=== PATIENT | female | born 1990 ===

== ENCOUNTER 2025-05-25 09:33 | Emergency (ER) | payer MEDICAID ==
[~2025-05-25] VITALS: Ht 157.5 cm; Wt 71.5 kg
--- NOTE | 2025-05-25 10:07 | RADIOLOGY REPORT ---
DI CHEST,TWO VIEWS, HISTORY: SOB COMPARISON: None None TECHNICAL DATA: 2 view of the chest was obtained. FINDINGS: Lines and tubes: None Cardiomediastinal silhouette: normal Pulmonary vasculature: normal Lung expansion: normal Lung airspace: normal Lung interstitium: normal Pleura: normal Pneumothorax: no Bones: Unremarkable Other: no IMPRESSION: No acute intrathoracic abnormality.
--- NOTE | 2025-05-25 10:09 | ELECTROCARDIOGRAPH REPORT ---
[facility] Test Date: 2025-05-25 Test Time: 10:07:30 Pat Name: SILVIO GUTIERREZ Department: EMERGENCY ROOM Patient ID: [id number] Room: Gender: F Relay Associate: CLAUDIA : 1990 Requested By: RUBÉN SHAFER Order Number: [id number] Reading MD: Dr. Rubén Shafer Measurements Intervals [place] Rate: 90 P: 56 AK: 145 QRS: 37 QRSD: 92 T: 7 QT: 349 QTc: 427 Interpretive Statements Sinus rhythm Borderline T abnormalities, anterior leads Electronically Signed On 05-25-2025 12:04:[address] Rubén Shafer Please click the below link to view image of tracing.
[2025-05-25 10:38] LABS: LEUKOCYTE ESTERASE ,URINE NEGATIVE (Neg); NITRITES, URINE NEGATIVE (Neg); OCCULT BLOOD,URINE TRACE-INTACT (Neg)
[2025-05-25 10:38] LABS: MEAN PLATELET VOLUME 7.4 FL (7.4-10.4); RED CELL DISTRIBUTION WIDTH 14.9 % (11.5-14.5)
[2025-05-25 10:40] LABS: URINE HCG NEGATIVE (NEG)
[2025-05-25 10:41] LABS: UA COLLECTION TYPE CLN CATCH MIDSTREAM
[2025-05-25 10:44] LABS: SQUAMOUS EPITHELIAL CELL,UR FEW /LPF (FEW)
[2025-05-25 10:56] LABS: CREATININE 0.78 MG/DL (0.40-0.90); PRO BRAIN NATRIURETIC PEPTIDE 554 PG/ML (0-125); TOTAL CARBON DIOXIDE 24.9 MMOL/L (24-32); eCRCL 79 ML/MIN; eGFR 84 ML/MIN
--- NOTE | 2025-05-25 14:57 | Physician Documentation ---
History of Present Illness ~ Chief Complaint: Shortness of Breath Stated Complaint: PNEUMONIA Time Seen by MD: 14:09 OK to notify your PCP?: Yes Source: patient Mode of Arrival: POV, Ambulatory Exam Limitations: no limitations HPI 34-year-old female presents for cough, runny nose, shortness of breath, fevers, sore throat since last night. She has a history of pneumonia 2 months ago and states that her symptoms feel similar to that time. She has been around a baby whose was sick with a viral illness. She states that she has also been having a headache. Denies any chest pain, cardiac history. Medication Reconciliation Allergies: Coded Allergies: No Known Allergies (Unverified , 05/25/25) Review of Systems All Other Systems at this time: Reviewed and Negative Physical Exam Vital Signs: RN Vital Signs have been reviewed: Yes, Temperature: 99.4, Source: Temporal, Heart Rate: 78, Respiratory Rate: 16, BP: 115/79, Pulse Oximetry: 97, Weight: 71.550 Oxygen Flow Rate: 0 Pulse Oximetry Reflects: adequate oxygenation Physical Exam General: Alert, no apparent distress. HEENT: PERRL, EOMI, no injection, moist mucous membranes. Bilateral TM clear. Erythema to posterior pharynx. Uvula midline. Neck: Full range of motion. Bilateral anterior cervical lymphadenopathy. Respiratory: Lungs clear, no respiratory distress. Chest: No accessory muscle use. Cardiovascular: Regular rate and rhythm, no murmurs. Gastrointestinal: Soft, nontender, nondistended. Bowels sounds present. Extremities: Normal range of motion, no deformity. Neurologic: Oriented x4. Psychiatric: Normal mood and affect. Skin: Normal color, warm and dry. No edema, no ecchymosis. Progress Results/Orders Results/Orders Completed Orders - [facility] Potassium Cl Sr Tablet (K-Dur Tablet) (05/25/25 15:02) Vital Signs 05/25/25 05/25/25 05/25/25 09:40 10:09 13:44 Temp 99.4 Pulse 104 78 Resp 20 16 B/P (MAP) 147/79 115/79 (91) Pulse Ox 96 97 O2 Flow Rate 0 0 Laboratory Tests Test 05/25/25 09:50 05/25/25 10:18 Urine Specimen Description Cln catch midstream Urine Color Straw Urine Clarity Clear Urine pH 7.0 Urine Specific [place] <=1.005 Urine Protein Negative Urine Glucose (UA) Negative Urine Ketones Negative Urine Occult Blood Trace-intact Urine Nitrite Negative Urine Bilirubin Negative Urine Urobilinogen 0.2 Urine Leukocyte Esterase Negative Urine RBC 3-10 Urine WBC None seen Urine Squamous Epithelial Cells Few Urine Transitional Epithelial Cells Few Urine Bacteria None seen Urine Culture Indicated Not ind Volume Urine Centrifuged 10 ml Urine HCG, Qualitative Negative Urine Comment White Blood Count 6.4 Red Blood Count 4.12 L Hemoglobin 12.1 Hematocrit 34.6 L Mean Corpuscular Volume 84.1 Mean Corpuscular Hemoglobin 29.3 Mean Corpuscular Hemoglobin Concent 34.8 Red Cell Distribution Width 14.9 H Platelet Count 207 Mean Platelet Volume 7.4 Neutrophils (%) (Auto) 82.1 H Lymphocytes (%) (Auto) 7.8 L Monocytes (%) (Auto) 9.1 Eosinophils (%) (Auto) 0.8 Basophils (%) (Auto) 0.2 Neutrophils # (Auto) 5.2 Lymphocytes # (Auto) 0.5 L Monocytes # (Auto) 0.6 Eosinophils # (Auto) 0.1 Basophils # (Auto) 0.0 CBC Comment Sodium Level 137 Potassium Level 3.3 L Chloride Level 103 Carbon Dioxide Level 24.9 Anion Gap 9 Blood Urea Nitrogen 5 L Creatinine 0.78 Estimated GFR/1.73 m2 84 BUN/Creatinine Ratio 6.4 L Glucose Level 98 Calcium Level 8.7 Pro-B-Type Natriuretic Peptide 554 H Albumin 3.8 Chemistry Comments EKG/XRAY/CT/US/VASC/MRI EKG : Additional Comment Electrocardiogram: as interpreted by me; normal sinus rhythm, no axis deviation, no acute ischemia, normal intervals, no pre-excitation pattern. Chest X-Ray : Additional Comments Chest x-ray: as interpreted by me; no large effusion, no large infiltrate, normal mediastinum. Heart Score: Heart Score Response (Comments) Value History N/A 0 EKG Normal 0 Age <45 0 Risk Factors No known risk factors 0 Troponin N/A 0 Total 0 Medical Decision Making Additional info obtained from: family Findings She is presenting with cold cough and congestion symptoms. She was experiencing some shortness of breath and she has a history of pneumonia couple of months ago and states it feels the same. Her physical exam is unremarkable. We did a chest x-ray which is clear, no pneumonia. She had labs ordered while in triage due to her complaint of shortness of breath. The lab work was not indicated although it did show a low potassium of 3.3 as well as an elevated proBNP of 554. Her urinalysis was unremarkable She has no cardiac history or history of blood high blood pressure or high cholesterol. Using shared decision-making we discussed that this is likely a viral illness but that she does not have pneumonia. I gave potassium 20 mEq for the low potassium level and for the proBNP I believe this is likely related to her illness and respiratory symptoms and not due to acute heart failure. Using shared decision-making with the patient, she agrees that she does not believe she has any heart failure and that this is likely a cardiac I offered to do a troponin level for this patient although it is not indicated but due to her elevated proBNP but she would rather be discharged home at this time. Her EKG was normal. We discussed that she should follow up with her primary care provider for repeat PROBNP draw when she is feeling better and return back here for any new or worsening symptoms. She agrees to this plan of care. Differential Dx:Considerations: Include: bronchitis, COPD, pneumonia, pneumothorax, respiratory failure Departure Disposition: 01 HOME / SELF CARE / HOMELESS Impression: Primary Impression: Acute upper respiratory infection Condition: Stable Discharge Instructions: Upper Respiratory Infection, Adult Additional Instructions: Follow up with her primary care provider in the next week and return back here for any new or worsening symptoms. This is likely a viral infection which is self-limited and usually takes 7-10 days to fully resolve. Tylenol and ibuprofen can be used [id number] for pain and fever as well as Robitussin D can be very helpful for cough. Referrals: NO PRIMARY CARE PROVIDER (PCP) Education Educated: Patient, Family Educated regarding: diagnosis, treatment, prognosis, need for follow up Additional Comment Medical Screen Exam This patient recieved a medical screening examination. After reviewing the individual's medical complaints with presenting symptoms and performing an appropriate physical examination, it was determined that no immediate life- threatening emergency medical condition is present. This individual is also not a women having contractions. Signature Scribe Signature: . Attestation: Scribed for Brittney Allison Final Inspector And Tester by Brittney Lopez NP . 05/25/25 15:08 Parts of this note were created using [employer] voice recognition software progra m. While efforts were made to correct any mistakes made by this voice recognition software program, nonsensical phrases may remain in this note. In addition, there may be errors and syntax, grammar, content and spelling. BRITTNEY ALLISON [facility] May 25, 2025 14:57
[2025-05-25 15:22] VITALS: BP 125/86; PULSE 88; O2SAT 97
[2025-05-25] MEDS: potassium Cl 20 mEq SR tablet PO STA (15:22)
[2025-05-25 15:27] VITALS: RESP 16; TEMP 99.4
== END 2025-05-25 15:30 | disposition home or self-care (01) ==
LOC: ER 09:34
DX: J06.9 Acute upper respiratory infection, unspecified (principal)
CPT/HCPCS: 36415; 71046; 80048; 81001; 81025; 83880; 85025; 93005; 99285